=== PATIENT | male | born 1935 | race Caucasian/White ===

== ENCOUNTER 2019-12-22 12:04 | Emergency (ER) | payer OTHER ==
[~2019-12-22] VITALS: Ht 170.2 cm; Wt 81.6 kg
--- NOTE | 2019-12-22 12:12 | NUR ---
Patient ambulated to bed 11. RN evaluating patient at bedside.
[2019-12-22 12:14] VITALS: BP 152/94
--- NOTE | 2019-12-22 12:19 | NUR ---
SEEN BY PMD 12/07/19 RX DICLOFENAC FOR RIGHT HIP PAIN RADIATING RIGHT THIGH X 8 DAYS DENIES INJURY, AMBULATES WITH A SLIGHT LIMP DENIES ANY OTHER MEDICAL PROBLEMS
[2019-12-22 13:01] VITALS: BP 153/95
[2019-12-22] MEDS ORDERED: HYDROcodone/APAP 5/325 MG 1 TAB TAB PO ONE (13:20)
== END 2019-12-22 13:51 | disposition home or self-care (01) ==
LOC: MED 12:04
DX: M16.11 Unilateral primary osteoarthritis, right hip (principal); R03.0 Elevated blood-pressure reading, without diagnosis of hypertension
CPT/HCPCS: 73502; 99283; Q0092

== ENCOUNTER 2020-04-13 10:50 | Emergency (ER) | payer OTHER, MEDICAID, SELFPAY ==
[~2020-04-13] VITALS: Ht 170.2 cm; Wt 83.5 kg
[~2020-04-13 10:50] MED LIST: APIX2.5 PO; AZIT250T11 PO; CEFU500T73 PO; DEXA6TAB1 PO; VITC500 PO; ZINC220C28 PO
[2020-04-13 10:58] VITALS: BP 143/87
--- NOTE | 2020-04-13 10:58 | NUR ---
PATIENT AMBULATED TO ER BED 03
--- NOTE | 2020-04-13 11:12 | NUR ---
84 YO MALE C/O FEVER AND BODYACHES X8 DAYS; PT STATES HE WAS IN CLOSE CONTACT WITH A FAMILY MEMBER WHO TESTED POSITIVE FOR COVID 2 WEEKS AGO. PT WAS TESTED FOR COVID 04/08/20 AND TESTED POSITIVE. PT AFEBRILE UPON ARRIVAL, DENIES SOB OR COUGH. PT HAS MASK IN PLACE AND PLACED IN COVID ISOLATION PRECAUTIONS HX DENIES RX DENIES
--- NOTE | 2020-04-13 12:00 | NUR ---
BLOOD DRAWN AND WALKED TO LAB
[2020-04-13 12:11] LABS: BASOPHILS % (AUTO) 0.2 % (0.0-2.0); HEMATOCRIT 44.6 % (36-52); LYMPHOCYTES # (AUTO) 0.5 K/uL (2.0-11.5); LYMPHOCYTES % (AUTO) 4.4 % (20.5-51.1); MEAN CORPUSCULAR HEMOGLOBIN 30 pg (27-31); MEAN CORPUSCULAR HGB CONC 34 g/dL (33-37); MEAN CORPUSCULAR VOLUME 89.8 fL (80-94); MONOCYTES # (AUTO) 0.4 K/uL (0.8-1.0); NEUTROPHILS # (AUTO) 9.8 K/uL (1.8-7.7); NEUTROPHILS % (AUTO) 91.4 % (42.2-75.2); PLATELET COUNT (AUTO) 284 K/uL (140-450); RED BLOOD CELL COUNT(AUTO) 4.96 MIL/uL (4.20-6.10); RED CELL DISTRIBUTION WIDTH 13.5 % (11.6-13.7); WHITE BLOOD COUNT (AUTO) 10.7 K/uL (4.8-10.8)
[2020-04-13 12:51] LABS: ANION GAP 13.4 (8-16); ASPARTATE AMINOTRANSFERASE 72 U/L (15-37); CARBON DIOXIDE 23.3 mmol/L (21-32); CHLORIDE 102 mmol/L (98-107); GLUCOSE 162 mg/dL (74-106); POTASSIUM 3.7 mmol/L (3.5-5.1); SODIUM SERUM 135 mmol/L (136-145); TOTAL BILIRUBIN 0.5 mg/dL (0.0-1.0); UREA NITROGEN, BLOOD 15 mg/dL (7-18)
[2020-04-13 12:53] LABS: C-REACTIVE PROTEIN QUANT 3.1 mg/dL (0.0-0.9)
[2020-04-13] MEDS: NACL 0.9% 1,000 ML IV ONE (13:30)
--- NOTE | 2020-04-13 13:36 | NUR ---
PT SLEEPING IN BED AT THIS TIME. EASILY AROUSEABLE TO VOICE. PT IS CHINESE SPEAKING AND A/OX4. ONE BEDRAIL UP AND BED IN LOWEST POSITION. WILL CONTINUE TO MONITOR
--- NOTE | 2020-04-13 14:12 | NUR ---
MICHAEL PRESTON CALLED FOR UPDATE. SHE ADVISED THAT SHE WILL P/U PT ONCE DISCHARGED.
--- NOTE | 2020-04-13 15:10 | NUR ---
PT SHEREEN. CALLED GRAND DAUGHTER KARY. SHE ADVISED SHE WAS OUTSIDE WAITING FOR PT.
[2020-04-13 15:37] VITALS: BP 143/87
--- NOTE | 2020-04-13 15:38 | NUR ---
Patient discharged with v/s stable. Written and verbal after care instructions given and explained. Patient verbalized understanding. Ambulatory with steady gait. All questions addressed prior to discharge. Advised to follow up with PMD.
== END 2020-04-13 15:38 | disposition home or self-care (01) ==
LOC: MED 10:50
DX: U07.1 COVID-19 (principal); R53.1 Weakness; E86.0 Dehydration; E11.9 Type 2 diabetes mellitus without complications; M19.90 Unspecified osteoarthritis, unspecified site; Z79.899 Other long term (current) drug therapy
CPT/HCPCS: 36415; 71045; 80053; 82728; 83605; 83615; 83880; 84484; 85025; 86140; 87040; 93005; 96360; 99285; J7030; Q0092